=== PATIENT | male | born 1980 | race Caucasian/White ===

== ENCOUNTER 2023-03-22 08:49 | Emergency (ER) | payer SELFPAY ==
[~2023-03-22] VITALS: Ht 172.7 cm; Wt 76.4 kg
[~2023-03-22 08:49] MED LIST: NORCO 5-325 TA1 EACH PO
[2023-03-22] MEDS ORDERED: FOLTX TABLET1 EAC1 PO (09:08)
[2023-03-22 09:22] LABS: BILIRUBIN, URINE NEGATIVE (negative); BLOOD/HGB, URINE NEGATIVE (Negative); KETONE, URINE NEGATIVE (Negative); LEUK ESTERASE, URINE NEGATIVE (negative); NITRITE, URINE NEGATIVE (negative)
[2023-03-22 09:29] LABS: BACTERIA, URINE NONE SEEN /hpf (negative); CASTS, URINE NONE SEEN \\lpf; COLLECTION TYPE, URINE CLEAN CATCH; CRYSTALS, URINE NONE SEEN (0-1+); EPITHELIAL CELLS, URINE 0 /lpf (0-1+); RED BLOOD CELLS, URINE 0-1 /hpf (0-5); WHITE BLOOD CELLS, URINE 0-1 /HPF (0-5)
[2023-03-22 09:30] LABS: REFLEX CULTURE, URINE No (No)
[2023-03-22] MEDS ORDERED: BACTRIM DS TAB1 EACH PO (10:14)
[2023-03-22 10:26] VITALS: BP 126/97
[2023-03-22 10:52] LABS: N. GONORRRHOEAE BY PCR NOT DETECTED (NOT DETECT)
== END 2023-03-22 10:25 | disposition home or self-care (01) ==
LOC: ED 08:49
PROVIDERS: Emergency Medicine
DX: N45.2 Orchitis (principal); Z87.891 Personal history of nicotine dependence
CPT/HCPCS: 76870; 81001; 99284-25; A9270